=== PATIENT | male | born 1960 | race Caucasian/White ===

== ENCOUNTER 2024-07-17 16:19 | Inpatient (IN) | payer BC ==
[2024-07-17 16:49] LABS: #Basophils 0.12 10x3/uL (0.0-0.2); %Basophils 0.8 % (0.0-1.0); %Lymphocytes 10.1 % (21.0-51.0); %Monocytes 8.3 % (0.0-10.0); %Neutrophils 76.3 % (42.0-75.0); Hematocrit 42.5 % (42.0-52.0); Hemoglobin 14.3 g/dL (14.0-18.0); Mean Corpuscular HGB CONC 33.6 g/dL (32.0-36.0); Mean Corpuscular Hemoglobin 28.7 pg (27.0-31.0); Mean Corpuscular Volume 85.2 fL (78.0-98.0); Mean Platelet Volume 9.3 fL (7.4-10.4); Platelet Count 623 10x3/uL (130-400); RBC Distribution Width 12.7 % (11.5-14.5); Red Blood Cell (RBC) Count 4.99 mill/uL (4.70-6.10)
[2024-07-17 17:05] LABS: Amphetamine Not Detected (NotDetected); Barbiturates Screen Not Detected (NotDetected); Benzodiazepine Screen Detected (NotDetected); Cocaine Metabolite Screen Not Detected (NotDetected); Methadone Not Detected (NotDetected); Methamphetamine Not Detected (NotDetected); Opiate Screen Detected (NotDetected); Oxycodone Screen Not Detected (NotDetected); Phencyclidine (PCP) Not Detected (NotDetected); THC/Cannabinoid Screen Detected (NotDetected); Tricyclic Screen Not Detected (NotDetected)
[2024-07-17 17:07] LABS: Acetaminophen Less than 10 mcg/mL (Less than 10); Alcohol Less than 10.0 mg/dL (Less than 10); Lipase 15 U/L (8-78); Salicylate Less than 8.0 mg/dL (Less than 8.0)
[2024-07-17 17:08] LABS: ALT (SGPT) 21 U/L (8-55); AST (SGOT) 16 U/L (5-34); Albumin 2.7 g/dL (3.4-4.8); Alkaline Phosphatase 95 U/L (40-110); Anion Gap 16 mmol/L (10-20); BUN (Urea Nitrogen) 19 mg/dL (8.4-25.7); Bilirubin, Total 0.2 mg/dL (0.2-1.2); Calc. Creatinine Clearance 0 mL/min (70-130); Calcium 9.3 mg/dL (7.8-10.44); Carbon Dioxide 19 mmol/L (23-31); Chloride 107 mmol/L (98-107); Estimated GFR 100; Globulin 4.8 g/dL (2.4-3.5); Glucose 152 mg/dL (80-115); Potassium 3.9 mmol/L (3.5-5.1); Protein, Total 7.5 g/dL (5.8-8.1); Sodium 138 mmol/L (136-145)
[2024-07-17 17:18] LABS: INR-International Normal Ratio 1.2; Prothrombin Time 15.1 sec (12.0-14.7)
[2024-07-17 17:19] LABS: PTT 31.1 sec (22.9-36.1)
[2024-07-17] MEDS ORDERED: Sodium Chloride 0.9% 250 ML 250 ML ONE (17:49)
[2024-07-17] MEDS ORDERED: Sodium Chloride 0.9% 100 ML ONE (17:49)
[2024-07-17] MEDS ORDERED: cefTRIAXone (ROCEPHIN) 2 GM VIAL ONE (17:49)
[2024-07-17] MEDS ORDERED: Ketorolac Tromethamine 30 MG (1 mL) VIAL ONE (17:49)
[2024-07-17] MEDS ORDERED: Azithromycin 500 MG VIAL ONE (17:49)
[2024-07-17] MEDS ORDERED: Acetaminophen 325 MG TAB PO PRN (19:11)
[2024-07-17] MEDS ORDERED: Ondansetron PF 4 MG/2 ML Vial IVP PRN (19:11)
[2024-07-17] MEDS ORDERED: Ondansetron ODT 4 MG TAB PO PRN (19:11)
[2024-07-17] MEDS ORDERED: Ipratropium/Albuterol 3 ML NEB NEB PRN (19:11)
[2024-07-17] MEDS ORDERED: Guaifenesin DM 100-10/5 ML UDCUP PO PRN (19:11)
[2024-07-17 19:43] LABS: Lactic Acid 2.15 mmol/L (0.5-2.2)
[2024-07-17 20:19] LABS: Troponin I 0.094 ng/mL (< 0.028)
[2024-07-17 20:52] LABS: Legionella Urinary Ag Negative (Negative); Strep pneumo Urine Ag NEGATIVE (NEGATIVE)
[2024-07-17] MEDS ORDERED: Doxycycline 100 MG CAP ONE (21:09)
[2024-07-17] MEDS: Doxycycline 100 MG CAP PO SCH (21:35)
[2024-07-18] MEDS ORDERED: Levothyroxine Sodium 75 MCG TAB ONE (05:20)
[2024-07-18] MEDS: Levothyroxine Sodium 75 MCG TAB PO SCH (05:41)
[2024-07-18] MEDS ORDERED: Carvedilol 6.25 MG TAB ONE (08:55)
[2024-07-18] MEDS ORDERED: Doxycycline 100 MG CAP ONE (08:55)
[2024-07-18] MEDS ORDERED: Aspirin 81 mg Enteric Coated Tablet ONE (08:55)
[2024-07-18] MEDS ORDERED: Enoxaparin 40 MG (0.4 mL) SYRINGE ONE (08:56)
[2024-07-18] MEDS ORDERED: Losartan 25 MG TAB ONE (09:00)
[2024-07-18] MEDS ORDERED: Sertraline 100 MG TAB ONE ×2 (09:00→10:25)
[2024-07-18] MEDS: Aspirin 81 mg Enteric Coated Tablet PO SCH (09:06)
[2024-07-18] MEDS: Carvedilol 3.125 MG TAB PO SCH (09:06)
[2024-07-18] MEDS: Doxycycline 100 MG CAP PO SCH (09:07)
[2024-07-18] MEDS: Enoxaparin 40 MG (0.4 mL) SYRINGE SC SCH (09:07)
[2024-07-18] MEDS: Losartan 25 MG TAB PO SCH (09:08)
[2024-07-18] MEDS: Sertraline 100 MG TAB PO SCH ×2 (09:09→10:53)
[2024-07-18] MEDS: Pantoprazole DR 40 MG TAB PO SCH (09:09)
[2024-07-18] MEDS: Sodium Chloride 0.9% 1,000 ML IV SCH (10:53)
[2024-07-18 13:36] LABS: Influenza A by NAA Not Detected (NotDetected); Influenza B by NAA Not Detected (NotDetected); RSV by NAA Not Detected (NotDetected); SARS-CoV-2 NAA Rapid Test Not Detected (NotDetected)
[2024-07-18 14:07] VITALS: BMI 24.7
[2024-07-18] MEDS ORDERED: Ibuprofen 100 MG/5 ML UDCUP PO PRN (16:23)
[2024-07-18] MEDS: cefTRIAXone\\ROCEPHIN 1 GM in Sodium Chloride 0.9% 100 ML IVPB SCH (18:25)
[2024-07-18] MEDS ORDERED: Atorvastatin Calcium 40 MG TAB PO SCH (21:00)
[2024-07-18] MEDS ORDERED: Rosuvastatin 5 MG TAB PO SCH (21:00)
[2024-07-19] MEDS: Levothyroxine Sodium 75 MCG TAB PO SCH (05:25)
[2024-07-19 05:53] LABS: #Basophils 0.08 10x3/uL (0.0-0.2); %Basophils 0.6 % (0.0-1.0); %Eosinophils 3.9 % (0.0-10.0); %Lymphocytes 9.3 % (21.0-51.0); %Monocytes 9.6 % (0.0-10.0); %Neutrophils 75.5 % (42.0-75.0); Hematocrit 38.9 % (42.0-52.0); Hemoglobin 13.3 g/dL (14.0-18.0); Mean Corpuscular HGB CONC 34.2 g/dL (32.0-36.0); Mean Corpuscular Hemoglobin 29.4 pg (27.0-31.0); Mean Corpuscular Volume 85.9 fL (78.0-98.0); Mean Platelet Volume 9.4 fL (7.4-10.4); Platelet Count 491 10x3/uL (130-400); RBC Distribution Width 12.8 % (11.5-14.5); Red Blood Cell (RBC) Count 4.53 mill/uL (4.70-6.10)
[2024-07-19 06:12] LABS: Anion Gap 13 mmol/L (10-20); BUN (Urea Nitrogen) 15 mg/dL (8.4-25.7); Calc. Creatinine Clearance 114 mL/min (70-130); Calcium 8.7 mg/dL (7.8-10.44); Carbon Dioxide 20 mmol/L (23-31); Chloride 109 mmol/L (98-107); Estimated GFR 104; Glucose 108 mg/dL (80-115); Potassium 3.9 mmol/L (3.5-5.1); Sodium 138 mmol/L (136-145)
[2024-07-19] MEDS ORDERED: Sertraline 100 MG TAB PO SCH (09:00)
[2024-07-19] MEDS ORDERED: Non-Formulary Item 1 EACH (Olmesartan Medoxomil [Benicar] 20 MG Tab) PO SCH (09:00)
[2024-07-19] MEDS: Pantoprazole DR 40 MG TAB PO SCH (10:10)
[2024-07-19] MEDS: Rosuvastatin 5 MG TAB PO SCH (10:11)
[2024-07-19] MEDS: Aspirin 81 mg Enteric Coated Tablet PO SCH (10:11)
[2024-07-19] MEDS: Sertraline 100 MG TAB PO SCH (10:11)
[2024-07-20 05:45] LABS: #Basophils 0.09 10x3/uL (0.0-0.2); %Basophils 0.7 % (0.0-1.0); %Eosinophils 4.2 % (0.0-10.0); %Lymphocytes 7.7 % (21.0-51.0); %Monocytes 9.9 % (0.0-10.0); %Neutrophils 76.6 % (42.0-75.0); Hematocrit 39.2 % (42.0-52.0); Hemoglobin 13.2 g/dL (14.0-18.0); Mean Corpuscular HGB CONC 33.7 g/dL (32.0-36.0); Mean Corpuscular Hemoglobin 28.6 pg (27.0-31.0); Mean Corpuscular Volume 84.8 fL (78.0-98.0); Mean Platelet Volume 9.4 fL (7.4-10.4); Platelet Count 448 10x3/uL (130-400); RBC Distribution Width 12.7 % (11.5-14.5); Red Blood Cell (RBC) Count 4.62 mill/uL (4.70-6.10)
[2024-07-20 06:33] LABS: Troponin I 0.044 ng/mL (< 0.028)
[2024-07-20 06:42] LABS: Anion Gap 14 mmol/L (10-20); BUN (Urea Nitrogen) 17 mg/dL (8.4-25.7); Calc. Creatinine Clearance 90 mL/min (70-130); Calcium 8.4 mg/dL (7.8-10.44); Carbon Dioxide 22 mmol/L (23-31); Chloride 107 mmol/L (98-107); Estimated GFR 97; Glucose 119 mg/dL (80-115); Potassium 4.3 mmol/L (3.5-5.1); Sodium 139 mmol/L (136-145)
[2024-07-20] MEDS: Losartan 25 MG TAB PO SCH (09:00)
[2024-07-20] MEDS: methylPREDNISolone Sod Succ 40 MG VIAL IVP SCH (14:22)
[2024-07-20] MEDS: hydrOXYzine 25 MG TAB PO PRN (20:54)
[2024-07-21 04:42] LABS: #Basophils 0.04 10x3/uL (0.0-0.2); %Basophils 0.3 % (0.0-1.0); %Eosinophils 0.4 % (0.0-10.0); %Lymphocytes 5.8 % (21.0-51.0); %Monocytes 3.9 % (0.0-10.0); %Neutrophils 88.3 % (42.0-75.0); Hematocrit 38.4 % (42.0-52.0); Mean Corpuscular HGB CONC 33.9 g/dL (32.0-36.0); Mean Corpuscular Hemoglobin 28.6 pg (27.0-31.0); Mean Corpuscular Volume 84.4 fL (78.0-98.0); Mean Platelet Volume 9.6 fL (7.4-10.4); Platelet Count 465 10x3/uL (130-400); RBC Distribution Width 12.6 % (11.5-14.5); Red Blood Cell (RBC) Count 4.55 mill/uL (4.70-6.10)
[2024-07-21 04:53] LABS: Anion Gap 15 mmol/L (10-20); BUN (Urea Nitrogen) 18 mg/dL (8.4-25.7); Calc. Creatinine Clearance 100 mL/min (70-130); Calcium 8.9 mg/dL (7.8-10.44); Carbon Dioxide 21 mmol/L (23-31); Chloride 103 mmol/L (98-107); Estimated GFR 100; Glucose 147 mg/dL (80-115); Potassium 4.3 mmol/L (3.5-5.1); Sodium 135 mmol/L (136-145)
[2024-07-21] MEDS: Ipratropium/Albuterol 3 ML NEB NEB PRN (13:18)
[2024-07-21 14:17] LABS: HIV (1/2) Antibody/Antigen NONREACTIVE (NonReactive); HIV 1/2 INDEX 0.71 S/CO (<1.00)
[2024-07-22 05:48] LABS: #Basophils 0.03 10x3/uL (0.0-0.2); #Eosinophils Less than 0.03 10x3/uL (0.0-0.7); %Basophils 0.2 % (0.0-1.0); %Eosinophils 0.1 % (0.0-10.0); %Monocytes 3.6 % (0.0-10.0); %Neutrophils 89.8 % (42.0-75.0); Hematocrit 39.5 % (42.0-52.0); Hemoglobin 13.3 g/dL (14.0-18.0); Mean Corpuscular HGB CONC 33.7 g/dL (32.0-36.0); Mean Corpuscular Hemoglobin 28.7 pg (27.0-31.0); Mean Corpuscular Volume 85.1 fL (78.0-98.0); Mean Platelet Volume 9.6 fL (7.4-10.4); Platelet Count 475 10x3/uL (130-400); RBC Distribution Width 12.8 % (11.5-14.5); Red Blood Cell (RBC) Count 4.64 mill/uL (4.70-6.10)
[2024-07-22 06:51] LABS: Anion Gap 18 mmol/L (10-20); BUN (Urea Nitrogen) 27 mg/dL (8.4-25.7); Calc. Creatinine Clearance 97 mL/min (70-130); Calcium 9.3 mg/dL (7.8-10.44); Carbon Dioxide 20 mmol/L (23-31); Chloride 105 mmol/L (98-107); Estimated GFR 99; Glucose 123 mg/dL (80-115); Potassium 4.5 mmol/L (3.5-5.1); Sodium 138 mmol/L (136-145)
[2024-07-22] MEDS: Sodium Chloride 0.9% 100 ML ONE (16:59)
[2024-07-24 01:25] VITALS: TEMP 98
[2024-07-24] MEDS: FLU (Fluad Triv) TS24-25 (65UP)/MF59C/PF 45 MCG/0.5 ML Syringe IM ONE (05:32)
[2024-07-24] MEDS: predniSONE 20 MG TAB PO SCH (08:17)
[2024-07-24] MEDS: Cefdinir 300 MG CAP PO SCH (08:17)
[2024-07-24 10:49] LABS: Complement-C4 37 mg/dL (15-53)
[2024-07-24 10:59] LABS: ANA Symphony (Qualitative) Negative (Negative); ANA Symphony (Quantitative) 0.3 Ratio (< 0.7 Negative); Mitochondrial Ab 0.9 U/mL (<4 Negative); Thyroid Peroxidase IgG Ab Less than 4.0 IU/mL (<25 Normal)
[2024-07-24 11:50] VITALS: BP 127/76
[2024-07-27 08:36] LABS: Aspergillus fumigatus Negative (Negative); Aureobasidium pullalans IgG Negative (Negative); Micropolyspora faeni Negative (Negative); Pigeon Droppings IgG Negative (Negative); T vulgaris Negative (Negative)
== END 2024-07-24 14:26 | disposition home or self-care (01) | DRG 871 ==
LOC: ERS 16:19 → ERHOLD 18:52 → 2NO 07-18 14:03 → T4-A 07-21 17:29
PROVIDERS: ADMIT Internal Medicine; ATTEND Internal Medicine
DX: A41.9 Sepsis, unspecified organism (principal); J18.9 Pneumonia, unspecified organism; J96.01 Acute respiratory failure with hypoxia; I5A Non-ischemic myocardial injury (non-traumatic); Z88.8 Allergy status to other drugs, medicaments and biological substances; Z79.899 Other long term (current) drug therapy; Z79.82 Long term (current) use of aspirin; E11.9 Type 2 diabetes mellitus without complications; E03.9 Hypothyroidism, unspecified; E78.5 Hyperlipidemia, unspecified; I10 Essential (primary) hypertension; E66.9 Obesity, unspecified; F41.9 Anxiety disorder, unspecified; F32.A Depression, unspecified; I25.10 Atherosclerotic heart disease of native coronary artery without angina pectoris; F12.10 Cannabis abuse, uncomplicated; J84.10 Pulmonary fibrosis, unspecified
CPT/HCPCS: 0241U; 36415; 71045; 71250; 71275; 80048; 80053; 80306; 80307; 83516; 83605; 83690; 83735; 83880; 84145; 84484; 85025; 85610; 85730; 86038; 86141; 86160; 86225; 86331; 86376; 86602; 86606; 86671; 87040; 87070; 87081; 87205; 87389; 87449; 87899; 90653; 93005; 94640; 94760; 96365; 96375; J0456; J0696; J1650; J1885; J2919; J7030; J7050; J7512; J7620